=== PATIENT | female | born 1950 | race African-American/Black ===

== ENCOUNTER 2016-12-24 20:04 | Emergency (ER) | payer OTHER ==
[2016-12-24 21:11] LABS: Basophils % (Auto) 1.4 % (0.0-1.8); Eosinophils % (Auto) 5.1 % (0.0-4.3); Hematocrit 37.2 % (30.3-42.9); Hemoglobin 12.1 gm/dl (10.1-14.3); Mean Corpuscular HGB Conc 33 % (30-34); Mean Corpuscular Hemoglobin 28 pg (28-32); Mean Corpuscular Volume 86 fl (79-97); Platelet Count 303 K/mm3 (140-440); Red Blood Count 4.32 M/mm3 (3.65-5.03); Red Cell Distribution Width 13.9 % (13.2-15.2); White Blood Count 5.7 K/mm3 (4.5-11.0)
[2016-12-24 21:26] LABS: Albumin/Globulin Ratio 1.1 %; Alkaline Phosphatase 90 units/L (35-129); Blood Urea Nitrogen 19 mg/dL (7-17); Carbon Dioxide 26 mmol/L (22-30); Glucose 102 mg/dL (65-100); Lipase 57 units/L (13-60); Sodium 138 mmol/L (137-145); Total Protein 7.8 g/dL (6.3-8.2)
[2016-12-24 21:46] LABS: Alanine Aminotransferase 12 units/L (7-56); Anion Gap 16 mmol/L
[2016-12-24 22:43] LABS: Bilirubin,Urine NEG (Negative); Blood,Urine NEG (Negative); Ketones,Urine NEG (Negative); Leukocyte Esterase,Urine LG (Negative); Mucus,Urine FEW /HPF; Nitrite,Urine NEG (Negative); Protein,Urine <15 mg/dL mg/dL (Negative); Urobilinogen,Urine < 2.0 mg/dL (<2.0)
[2016-12-24] MEDS ORDERED: MORPHINE IM ONE (23:00)
--- NOTE | 2016-12-24 23:00 | Emergency Department Report ---
ED Abdominal Pain HPI - General Chief Complaint: Abdominal Pain Stated Complaint: ABD PAIN Time Seen by Provider: 12/24/16 22:45 Source: patient, family, RN notes reviewed Mode of arrival: Ambulatory Limitations: No Limitations - History of Present Illness Initial Comments: This is an 66-year-old female. She is previously unknown to me. She denies chronic medical conditions with the exception of hypertension. She is accompanied by her son. She declines a formal director online marketing. She requests that her son translate for her. The patient speaks broken Swedish, and is typically conversant in. The knees. The patient complains of right upper quadrant pain that radiates to the back. It is associated with no chest pain, shortness of breath. There is no leg pain or leg swelling. No recent trips greater than 4 hours. No recent hospital admissions. The pain increases with palpation and decreased with rest. MD Complaint: abdominal pain, flank pain -: Gradual Location: RUQ, epigastric Radiation: back Quality: aching Consistency: intermittent Improves With: rest Worsens With: movement Associated Symptoms: denies other symptoms - Related Data Previous Rx's Medication Instructions Recorded Last Taken Type Dicyclomine [Bentyl] 10 mg PO QID PRN #20 capsule 12/25/16 Unknown Rx Famotidine [Pepcid] 20 mg PO QDAY #30 tablet 12/25/16 Unknown Rx Ondansetron [Zofran Odt] 4 mg PO QID PRN #20 tab.rapdis 12/25/16 Unknown Rx Sucralfate [Carafate] 1 gm PO ACHS #120 tablet 12/25/16 Unknown Rx Allergies Allergy/AdvReac Type Severity Reaction Status Date / Time Penicillins Allergy Unknown Verified 12/24/16 20:55 ED Review of Systems ROS: Stated complaint: ABD PAIN Other details as noted in HPI Constitutional: denies: fever Eyes: denies: vision change ENT: denies: epistaxis Respiratory: denies: cough Cardiovascular: denies: chest pain Gastrointestinal: abdominal pain Genitourinary: denies: dysuria Musculoskeletal: back pain Skin: denies: lesions Neurological: denies: weakness ED Past Medical Hx - Past Medical History Previous Medical History?: No Hx Hypertension: Yes - Social History Smoking Status: Never Smoker Substance Use Type: None - Medications Home Medications: Home Medications Medication Instructions Recorded Confirmed Last Taken Type Dicyclomine [Bentyl] 10 mg PO QID PRN #20 capsule 12/25/16 Unknown Rx Famotidine [Pepcid] 20 mg PO QDAY #30 tablet 12/25/16 Unknown Rx Ondansetron [Zofran Odt] 4 mg PO QID PRN #20 tab.rapdis 12/25/16 Unknown Rx Sucralfate [Carafate] 1 gm PO ACHS #120 tablet 12/25/16 Unknown Rx ED Physical Exam - General Limitations: No Limitations General appearance: alert, in no apparent distress - Head Head exam: Present: atraumatic, normocephalic - Eye Eye exam: Present: normal appearance, EOMI. Absent: nystagmus - ENT ENT exam: Present: normal exam, normal orophraynx, mucous membranes moist, normal external ear exam - Neck Neck exam: Present: normal inspection, full ROM. Absent: tenderness, meningismus - Respiratory Respiratory exam: Present: normal lung sounds bilaterally. Absent: respiratory distress, wheezes, rales, rhonchi, stridor, chest wall tenderness, accessory muscle use, decreased breath sounds, prolonged expiratory - Cardiovascular Cardiovascular Exam: Present: regular rate, normal rhythm, normal heart sounds. Absent: bradycardia, tachycardia, irregular rhythm, systolic murmur, diastolic murmur, rubs, gallop - GI/Abdominal GI/Abdominal exam: Present: soft, tenderness, normal bowel sounds, other (there is right upper quadrant tenderness, there is right flank tenderness. There is no right lower quadrant tenderness.). Absent: distended, guarding, rebound, rigid, pulsatile mass - Extremities Exam Extremities exam: Present: normal inspection, full ROM, normal capillary refill. Absent: pedal edema, joint swelling, calf tenderness - Back Exam Back exam: Present: normal inspection, full ROM. Absent: paraspinal tenderness , vertebral tenderness - Neurological Exam Neurological exam: Present: alert, oriented X3, normal gait, other (Extraocular movements intact. Tongue midline. No facial droop. Facial sensation intact to light touch in the V1, V2, V3 distribution bilaterally. 5 and 5 strength in 4 extremities.. Sensation is intact to light touch in 4 extremities.). Absent : motor sensory deficit - Psychiatric Psychiatric exam: Present: normal affect, normal mood - Skin Skin exam: Present: warm, dry, intact, normal color. Absent: rash ED Course Vital Signs 12/24/16 12/25/16 20:51 01:14 Temperature 97.4 F L 97.9 F Pulse Rate 65 64 Respiratory 18 20 Rate Blood Pressure 187/101 Blood Pressure 152/92 [Right] O2 Sat by Pulse 98 97 Oximetry ED Medical Decision Making - Lab Data Result diagrams: 12/24/16 20:59 12/24/16 20:59 Vital Signs 12/24/16 12/25/16 20:51 01:14 Temperature 97.4 F L 97.9 F Pulse Rate 65 64 Respiratory 18 20 Rate Blood Pressure 187/101 Blood Pressure 152/92 [Right] O2 Sat by Pulse 98 97 Oximetry Lab Results 12/24/16 12/24/16 12/24/16 Range/Units 20:59 20:59 21:54 WBC 5.7 (4.5-11.0) K/mm3 RBC 4.32 (3.65-5.03) M/mm3 Hgb 12.1 (10.1-14.3) gm/dl Hct 37.2 (30.3-42.9) % MCV 86 (79-97) fl MCH 28 (28-32) pg MCHC 33 (30-34) % RDW 13.9 (13.2-15.2) % Plt Count 303 (140-440) K/mm3 Lymph % (Auto) 29.2 (13.4-35.0) % [place] % (Auto) 13.8 H (0.0-7.3) % Eos % (Auto) 5.1 H (0.0-4.3) % Baso % (Auto) 1.4 (0.0-1.8) % Lymph # 1.7 (1.2-5.4) K/mm3 [place] # 0.8 (0.0-0.8) K/mm3 Eos # 0.3 (0.0-0.4) K/mm3 Baso # 0.1 (0.0-0.1) K/mm3 Seg Neutrophils % 50.5 (40.0-70.0) % Seg Neutrophils # 2.9 (1.8-7.7) K/mm3 Sodium 138 (137-145) mmol/L Potassium 5.0 (3.6-5.0) mmol/L Chloride 101.0 (98-107) mmol/L Carbon Dioxide 26 (22-30) mmol/L Anion Gap 16 mmol/L BUN 19 H (7-17) mg/dL Creatinine 0.5 L (0.7-1.2) mg/dL Estimated GFR > 60 ml/min BUN/Creatinine Ratio 38.00 % Glucose 102 H (65-100) mg/dL Calcium 9.0 (8.4-10.2) mg/dL Total Bilirubin 0.30 (0.1-1.2) mg/dL AST 16 (5-40) units/L ALT 12 (7-56) units/L Alkaline Phosphatase 90 (35-129) units/L Total Protein 7.8 (6.3-8.2) g/dL Albumin 4.0 (3.9-5) g/dL Albumin/Globulin Ratio 1.1 % Lipase 57 (13-60) units/L Urine Color Colorless (Yellow) Urine Turbidity Clear (Clear) Urine pH 6.0 (5.0-7.0) Ur Specific [place] 1.004 (1.003-1.030) Urine Protein <15 mg/dl (Negative) mg/dL Urine Glucose (UA) Neg (Negative) mg/dL Urine Ketones Neg (Negative) mg/dL Urine Blood Neg (Negative) Urine Nitrite Neg (Negative) Urine Bilirubin Neg (Negative) Urine Urobilinogen < 2.0 (<2.0) mg/dL Ur Leukocyte Esterase Lg (Negative) Urine WBC (Auto) 7.0 H (0.0-6.0) /HPF Urine RBC (Auto) 1.0 (0.0-6.0) /HPF U Epithel Cells (Auto) < 1.0 (0-13.0) /HPF Urine Mucus Few /HPF - EKG Data -: EKG Interpreted by Sd - Radiology Data Radiology results: report reviewed, image reviewed Right upper quadrant ultrasound negative. Noncontrast CT scan of the abdomen and pelvis negative. - Medical Decision Making Differential diagnosis: GERD, gastritis, pancreatitis, urinary colic, urinary tract infection, appendicitis, renal colic Assessment and plan: 66-year-old female with right upper quadrant pain that radiates to the back, no pulmonary embolus or DVT risk factors, low risk by well 's criteria. She is afebrile with return vital signs, hypertension has improved upon arrival. Laboratory studies were unremarkable, urinalysis not consistent with urinary tract infection, right upper quadrant ultrasound negative for acute findings, noncontrast CT scan negative for acute findings, patient feels improved with pain medication. Patient will be discharged with nonnarcotic pain medication, she follow-up with her primary care doctor. She is school for discharge at this point in time. Patient and son given copies of her laboratory studies and radiology studies to follow up with her primary care doctor Critical care attestation.: If time is entered above; I have spent that time in minutes in the direct care of this critically ill patient, excluding procedure time. ED Disposition Clinical Impression: Abdominal pain Disposition: DC-01 TO HOME OR SELFCARE Is pt being admited?: No Does the pt Need Aspirin: No Condition: Stable Instructions: Abdominal Pain (ED) Additional Instructions: Take medications as directed. Follow up with her primary care doctor within the next 5-7 days. Return to the ER right away with new pain, worsened pain, migration of pain, fevers, chills, confusion, intractable nausea or vomiting, inability to tolerate liquid feeds. Referrals: ZULEMA PINEDA, PAC [Primary Care Provider] - 3-5 Days
--- NOTE | 2016-12-24 23:57 | Ultrasound Report ---
FINAL REPORT PROCEDURE: US ABDOMEN LIMITED TECHNIQUE: Real-time sonography was performed of the right upper quadrant with image documentation. CPT 73296 HISTORY: ruq pain COMPARISON: No prior studies are available for comparison. FINDINGS: Liver demonstrates normal echotexture without focal lesions. There is no intrahepatic or extrahepatic biliary dilatation. Common duct is 4 millimeters in caliber. Gallbladder is well distended with normal outlines are normal wall thickness without calculi or pericholecystic collections. Visualized pancreatic head and body demonstrate normal echotexture. Right kidney measures 10 x 4 x 4 centimeters with normal echotexture without calculi or hydronephrosis proximal abdominal aorta is of normal caliber. Proximal IVC is also of normal caliber.. IMPRESSION: Unremarkable study
--- NOTE | 2016-12-25 00:57 | Cat Scan Report ---
FINAL REPORT PROCEDURE: CT ABDOMEN PELVIS WO CON TECHNIQUE: Computerized axial tomography of the abdomen and pelvis was performed without intravenous contrast. This study is performed without intravascular contrast material and its sensitivity for abdominal and pelvic pathology, including neoplasms, inflammation, abscess, free fluid, thrombosis, arterial dissection and infarction, is reduced compared with a contrast enhanced study. HISTORY: abd pain COMPARISON: No prior studies are available for comparison. FINDINGS: Visualized lower thorax: No significant abnormality. Liver: Normal size and attenuation. Spleen: Normal size and attenuation. Gallbladder and biliary system: Normal. Pancreas: Normal. Adrenals: Normal. Kidneys: Both kidneys have normal size. No hydronephrosis or hydroureter.. GI tract: Stomach is normal. No obstruction, ileus or enteritis. The cecum, appendix and colon are normal.. Lymph nodes and mesentery: Normal. Vasculature: Moderate atherosclerosis of the aorta and all branching vessels.. Bladder: Normal. Reproductive organs: No pelvic masses. Peritoneum: No free fluid. Musculoskeletal structures: No significant abnormality. Other: None. IMPRESSION: There is no evidence of intestinal or urinary tract obstruction. No ileus or enteritis. The appendix is normal..
[2016-12-25 01:15] VITALS: BP 152/92
== END 2016-12-25 01:53 | disposition home or self-care (01) ==
LOC: ED 20:04
DX: R10.13 Epigastric pain (principal); R10.11 Right upper quadrant pain; I10 Essential (primary) hypertension; Z88.0 Allergy status to penicillin
CPT/HCPCS: 36415; 74176; 76705; 80053; 81001; 83690; 85025; 93005; 93010; 96372; 99284; J2270